=== PATIENT | female | born 1985 | race Caucasian/White ===

== ENCOUNTER 2018-09-29 16:04 | Emergency (ER) | payer OTHER, MEDICAID ==
[2018-09-29] MEDS: IBUPROFEN 800 MG TAB PO (16:46)
== END 2018-09-29 17:18 | disposition home or self-care (01) ==
LOC: FTE 17:18
DX: M54.9 Dorsalgia, unspecified (principal); M54.2 Cervicalgia
CPT/HCPCS: 99283; Z7502

== ENCOUNTER 2018-10-06 16:45 | Emergency (ER) | payer OTHER ==
[2018-10-06] MEDS: HYDROCODONE/APAP (5/325) TAB PO (17:33)
== END 2018-10-06 19:25 | disposition home or self-care (01) ==
LOC: FTE 16:45
DX: S13.4XXA Sprain of ligaments of cervical spine, initial encounter (principal); S49.92XA Unspecified injury of left shoulder and upper arm, initial encounter; V89.2XXA Person injured in unspecified motor-vehicle accident, traffic, initial encounter
CPT/HCPCS: 72040; 73030; 81025; 99284-25